=== PATIENT | male | born 1980 | race Native Hawaiian/Other Pacific Islander ===

== ENCOUNTER 2019-05-20 08:56 | Emergency (ER) | payer OTHER ==
[~2019-05-20] VITALS: Ht 177.8 cm; Wt 90.7 kg
[2019-05-20 09:04] VITALS: BP 183/117; TEMP 99
== END 2019-05-20 10:54 | disposition home or self-care (01) ==
LOC: ED 08:56
DX: F20.89 Other schizophrenia (principal); Z53.29 Procedure and treatment not carried out because of patient's decision for other reasons
CPT/HCPCS: 80307; 81000; 87086; 87088; 99285